=== PATIENT | female | born 1985 | race Caucasian/White ===

== ENCOUNTER 2016-09-03 04:20 | Inpatient (IN) | payer BC ==
[~2016-09-03] VITALS: Ht 167.6 cm; Wt 76.7 kg
[2016-09-03] MEDS ORDERED: LR 1,000 ML IV ONE ×2 (04:49→06:02)
[2016-09-03] MEDS ORDERED: LR 1,000 ML IV SCH (04:49)
[2016-09-03] MEDS ORDERED: OXYTOCIN/NORMAL SALINE 1,000 ML IV SCH ×2 (04:49→18:14)
[2016-09-03] MEDS ORDERED: LR 500 ML IV ONE (04:49)
[2016-09-03] MEDS ORDERED: NALBUPHINE HCL 10 MG/ML AMP ONE (04:51)
[2016-09-03] MEDS ORDERED: FENT2mCg/mL-ROPIVA0.2%/NS EPID 150 ML EP SCH (05:00)
[2016-09-03] MEDS ORDERED: NALBUPHINE HCL 10 MG/ML AMP IVP PRN ×2 (05:00→06:15)
[2016-09-03] MEDS ORDERED: TERBUTALINE SULFATE 1 MG/ML VIAL SUBCUT ONE (05:00)
[2016-09-03] MEDS ORDERED: FENT2mCg/mL-ROPIVA0.2%/NS EPID 150 ML EP ONE (05:00)
[2016-09-03] MEDS ORDERED: fentaNYL CITRATE/PF 100 MCG/2 ML AMP ONE (05:02)
[2016-09-03] MEDS ORDERED: fentaNYL CITRATE/PF 100 MCG/2 ML AMP EP ONE (05:02)
[2016-09-03 05:09] LABS: BASOPHILS % (AUTO) 0.2 % (0.0-2.0); EOSINOPHILS % (AUTO) 0.3 % (0.0-4.0); HEMATOCRIT 41.6 % (36-48); HEMOGLOBIN 14.1 g/dL (12.0-16.0); LYMPHOCYTES # (AUTO) 2.8 K/uL (1.0-5.5); LYMPHOCYTES % (AUTO) 19.1 % (20.5-51.5); MEAN CORPUSCULAR HEMOGLOBIN 31 pg (27-31); MEAN CORPUSCULAR HGB CONC 34 % (32-36); MEAN CORPUSCULAR VOLUME 90 fL (79.0-98.0); MONOCYTES # (AUTO) 0.9 K/uL (0.0-1.0); MONOCYTES % (AUTO) 5.9 % (1.7-9.3); NEUTROPHILS # (AUTO) 11.1 K/uL (1.8-7.7); NEUTROPHILS % (AUTO) 74.5 % (40.0-70.0); PLATELET COUNT (AUTO) 175 K/uL (130-430); RED BLOOD CELL COUNT(AUTO) 4.64 MIL/uL (4.2-6.2); RED CELL DISTRIBUTION WIDTH 12.1 % (9.0-15.0); WHITE BLOOD COUNT (AUTO) 14.8 K/uL (4.8-10.8)
[2016-09-03] MEDS ORDERED: DIPHENHYDRAMINE INJ 50 MG/ML VIAL IVP PRN (06:15)
[2016-09-03] MEDS ORDERED: KETOROLAC TROMETHAMINE 30 MG VIAL IM PRN (06:15)
[2016-09-03] MEDS ORDERED: fentaNYL CITRATE/PF 100 MCG/2 ML AMP IVP PRN (06:15)
[2016-09-03] MEDS ORDERED: ONDANSETRON HCL 4 MG/2 ML VIAL IVP PRN ×2 (06:15)
[2016-09-03] MEDS ORDERED: NALOXONE HCL 0.4 MG/ML AMP (NARCAN) IVP PRN (06:15)
[2016-09-03] MEDS ORDERED: ePHEDrine sulfate 50 MG/ML VIAL IVP PRN (06:15)
[2016-09-03 07:00] VITALS: BP 108/72; PULSE 81; RESP 20; TEMP 98.7
[2016-09-03] MEDS ORDERED: OXYTOCIN/NORMAL SALINE 1,000 ML IV ONE ×2 (11:24→18:14)
[2016-09-03] MEDS ORDERED: HYDROCORTISONE 0.5%, 28.35 GM TOPICAL CREAM TP ONE (15:00)
[2016-09-03] MEDS ORDERED: MINERAL OIL 30 ML UDC PO ONE (15:00)
[2016-09-03] MEDS ORDERED: BUPIVACAINE /PF 0.25% 30 ML VIAL INJ ONE (15:00)
[2016-09-03] MEDS ORDERED: LIDOCAINE PF 1% 30ML(POUR BTL) INJ ONE (15:00)
[2016-09-03] MEDS ORDERED: OXYTOCIN 10 UNIT/ML VIAL ONE (17:57)
[2016-09-03] MEDS ORDERED: METHYLERGONOVINE MALEATE 0.2 MG TABLET PO PRN (18:15)
[2016-09-03] MEDS ORDERED: MEASLES,MUMPS&RUBELLA VACC/PF 12500 UNIT/0.5 ML VIAL SUBQ PRN (18:15)
[2016-09-03] MEDS ORDERED: ANUSOL 1 EA SUPP.RECT (PREPARATION H) RC PRN (18:15)
[2016-09-03] MEDS ORDERED: DERMOPLAST SPRAY TP PRN (18:15)
[2016-09-03] MEDS ORDERED: DOCUSATE SODIUM 100 MG CAPSULE PO PRN (18:15)
[2016-09-03] MEDS ORDERED: OXYCODONE/ACETAMINOPHEN 5-325 TABLET PO PRN ×2 (18:15)
[2016-09-03] MEDS ORDERED: HYDROCORTISONE 0.5%, 28.35 GM TOPICAL CREAM TP PRN (18:15)
[2016-09-03] MEDS ORDERED: GLYCERIN/WITCH HAZEL (TUCKS PADS) TP PRN (18:15)
[2016-09-03] MEDS ORDERED: SENNOSIDES/DOCUSATE SODIUM 1 TAB TABLET(SENOKOT-S) PO PRN (18:15)
[2016-09-03] MEDS ORDERED: RHO(D) IMMUNE GLOBULIN/MALTOSE 1500 UNITS/1.3 ML (WINHRO) IM PRN (18:15)
[2016-09-03] MEDS ORDERED: LANOLIN 7 GM OINT. TP PRN (18:15)
[2016-09-03] MEDS ORDERED: IBUPROFEN 800 MG TABLET ONE (18:29)
[2016-09-03] MEDS ORDERED: MEPERIDINE HCL/PF 50 MG/ML AMP IM ONE (18:30)
[2016-09-03] MEDS ORDERED: MEPERIDINE HCL/PF 50 MG/ML AMP ONE (18:38)
[2016-09-03] MEDS ORDERED: PROMETHAZINE HCL 25 MG/ML AMP ONE (18:38)
[2016-09-03] MEDS ORDERED: PROMETHAZINE HCL 25 MG/ML AMP IM ONE (18:45)
[2016-09-03] MEDS ORDERED: OXYTOCIN 10 UNIT/ML VIAL IM ONE (20:45)
[2016-09-03] MEDS ORDERED: TEMAZEPAM 15 MG CAPSULE PO PRN (21:00)
[2016-09-04] MEDS ORDERED: IBUPROFEN 600 MG TABLET PO SCH ×2
[2016-09-04] MEDS: IBUPROFEN 800 MG TABLET PO PRN ×3 (00:04→11:50)
[2016-09-05] MEDS: IBUPROFEN 800 MG TABLET PO PRN (00:07)
== END 2016-09-05 09:55 | disposition home or self-care (01) | DRG 775 ==
LOC: OBSVTOIN 04:20 → SPU 04:20
PROVIDERS: ADMIT Obstetrics & Gynecology; ATTEND Obstetrics & Gynecology
PROC: 10D07Z6 Extraction of Products of Conception, Vacuum, Via Natural or Artificial Opening (ICD-10-PCS; principal; 2016-09-03)
PROC: 0W8NXZZ Division of Female Perineum, External Approach (ICD-10-PCS; 2016-09-03)
PROC: 3E0S3CZ (ICD-10-PCS; 2016-09-03)
PROC: 00HU33Z Insertion of Infusion Device into Spinal Canal, Percutaneous Approach (ICD-10-PCS; 2016-09-03)
PROC: 30233N1 Transfusion of Nonautologous Red Blood Cells into Peripheral Vein, Percutaneous Approach (ICD-10-PCS; 2016-09-03)
DX: O42.92 Full-term premature rupture of membranes, unspecified as to length of time between rupture and onset of labor (principal); Z37.0 Single live birth; Z3A.39 39 weeks gestation of pregnancy; O77.0 Labor and delivery complicated by meconium in amniotic fluid
CPT/HCPCS: 36415; 85018-TC; 85025; 86592; 86870; 86886; 86900; 86901; 94760; J2001; J2175; J2300; J2405; J2550; J2590; J2790; J3010; J3490; J7120